=== PATIENT | female | born 1930 | race Caucasian/White ===

== ENCOUNTER 2017-07-05 06:42 | Inpatient (IN) | payer MEDICARE, OTHER ==
[2017-07-05] MEDS ORDERED: Sodium Chloride 0.9% 2.5 ML Syringe FLUSH PRN (07:21)
[2017-07-05] MEDS ORDERED: Bacitracin Oint 1 GM U/D Packet TOP ONE (07:21)
[2017-07-05] MEDS ORDERED: Sodium Chloride 0.9% 10 ML Syringe FLUSH PRN (07:21)
--- NOTE | 2017-07-05 07:28 | EDM.PDOC ---
ED HPI GENERAL MEDICAL PROBLEM - General Chief Complaint: Back Pain or Injury Stated Complaint: FALL Time Seen by Provider: 07/05/17 07:10 - History of Present Illness INITIAL COMMENTS - FREE TEXT/NARRATIVE: HISTORY AND PHYSICAL: History of present illness: The patient is an 87-year-old female who resides at [facility] (formerly [facility]) and presents after having a fall this morning and complaining of lower back and hip pain. According to the family over the last few weeks she has become more unsteady with her gait and is now using a walker but has been having more frequent falls. She had a fall several days ago and has a bruise on her left ribs was not sent for evaluation at that time. This morning she had an unwitnessed fall and landed on her left hip and lower back and complained of pain to this area as well as a skin tear and left elbow pain. Patient is not a very good historian and does complain of left hip pain on my evaluation but denies everything else. Patient is a full code. Patient has a history of dementia generalized anxiety disorder depression hypertension hypothyroidism hearing loss type 2 diabetes. Family says that as far as they know she's been eating well and has had no fevers coughing runny nose. She has not been complaining of any abdominal pain. Family says that they were told that she tripped over a stool in her room and not to she fell although our understanding is that this was unwitnessed. She is not on any anticoagulation per her med list. Patient is moving all extremities spontaneously. When asked about her level of consciousness/visualized drowsiness family says that she has been this way for the last several weeks and that is not a change Review of systems: As per history of present illness and below otherwise all systems reviewed and negative. Past medical history: As per history of present illness and as reviewed below otherwise noncontributory. Surgical history: As per history of present illness and as reviewed below otherwise noncontributory. Social history: No reported history of drug or alcohol abuse. Family history: As per history of present illness and as reviewed below otherwise noncontributory. Physical exam: Gen.: Well-developed well-nourished frail female who is nontoxic and moves all extremities. She lays in bed with her eyes closed and it does follow commands but is very slow to perform them. Her level of consciousness is at her baseline per family. HEENT: Atraumatic, normocephalic, there is no evidence of any defects deformities soft tissue swelling of the scalp there is no tenderness in this area, pupils reactive, negative for conjunctival pallor or scleral icterus, mucous membranes moist, throat clear, neck supple, nontender, trachea midline. There are no midline step-offs tenderness defects of the cervical spine Lungs: Clear to auscultation, breath sounds equal bilaterally, chest nontender. There is an old appearing ecchymosis at the left chest wall near the mid axillary line without any defects or deformities. It is not specifically tender in this area Heart: S1S2, regular rate and rhythm no overt murmurs Abdomen: Soft, nondistended, nontender. Negative for masses or hepatosplenomegaly. Negative for costovertebral tenderness. Pelvis: Stable nontender. There is tenderness at palpation of the lateral left hip without any soft tissue swelling or ecchymosis. The left leg is not shortened or rotated. Genitourinary: Deferred. Rectal: Deferred. Extremities: Atraumatic with the exception of the left although where there is some soft tissue swelling and a skin tear seen but no palpable bony deformities or tenderness and there is no compromise and range of motion at the elbow. There is also tenderness at the left hip as described above. The legs are, negative for cords or calf pain. Neurovascular unremarkable. Neuro: Awake, alert. Motor and sensory unremarkable throughout. Exam nonfocal. Patient does not follow commands very well and is moving all extremities spontaneously and has normal speech. Her level of consciousness is at her baseline per family which on my evaluation is that she lays in bed with her eyes closed and speaks slowly clearly with small short sentences. Back: There are no midline step-offs tenderness defects of the thoracic or lumbar spine no posterior rib or posterior pelvis pain. There is no soft tissue deformities swelling ecchymosis abrasions appreciated Diagnostics: EKG CBC CMP troponin UA CT scan of the head x-ray of the left hip with pelvis left ribs with chest elbow and lumbar spine Lactic acid blood cultures 2 urine culture Therapeutics: IV O2 monitor Tylenol gentle IV fluids Zosyn 1036: All testing results were discussed with the family at bedside as the patient is sleeping. They are aware of the superior and inferior rami fractures as well as the elevated WBCs with left shift. We are currently obtaining a urine sample to see if that is the source of these changes. They are aware that the patient will be admitted to the hospital for further evaluation and care. I discussed the case with Dr. Bee who agrees with Dr. Gutierrez for inpatient admission. They've advised me to give a dose of Zosyn which has been ordered. Impression: Fall with acute left superior and inferior symphysis pubis, leukocytosis with left shift, dehydration Definitive disposition and diagnosis as appropriate pending reevaluation and review of above. Left Hip Pain Score (Numeric/FACES): 7 - Related Data Allergies Allergy/AdvReac Type Severity Reaction Status Date / Time iodine Allergy Vomiting Verified 07/05/17 07:07 Home Meds: Home Meds Acetaminophen [Acetaminophen 8 Hour] 650 mg PO DAILY 07/05/17 [History] Aspirin 81 mg PO DAILY 07/05/17 [History] B1/B2/Niacin/B12/Protease [B-Complex with B-12 Tablet] 1 tab PO DAILY 07/05/17 [ History] Benzonatate 100 mg PO Q8HR PRN 07/05/17 [History] Bisacodyl 10 mg RECTAL DAILY PRN 07/05/17 [History] Escitalopram Oxalate [Lexapro] 15 mg PO DAILY 07/05/17 [History] Gabapentin [Neurontin] 100 mg PO TID 07/05/17 [History] Hydrochlorothiazide 25 mg PO DAILY 07/05/17 [History] Irbesartan 300 mg PO DAILY 07/05/17 [History] LORazepam 1 mg PO DAILY 07/05/17 [History] Latanoprost 1 drop EYERT DAILY 07/05/17 [History] Levothyroxine Sodium [Levo-T] 112 mcg PO DAILY 07/05/17 [History] Magnesium Hydroxide [Milk of Magnesia] 30 ml PO DAILY 07/05/17 [History] Metoprolol Tartrate 25 mg PO BID 07/05/17 [History] OLANZapine [Olanzapine] 5 mg PO BID 07/05/17 [History] Simvastatin [Zocor] 200 mg PO DAILY 07/05/17 [History] busPIRone HCl [Buspirone HCl] 7.5 mg PO BID 07/05/17 [History] metFORMIN [Glucophage] 500 mg PO DAILY 07/05/17 [History] Past Medical History HEENT History: Reports: Glaucoma, Macular Degeneration, Other (See Below) Other HEENT History: bilateral hearing loss Cardiovascular History: Reports: Hypertension, Other (See Below) Other Cardiovascular History: occlusion and stenosis of unspecififed carotid Respiratory History: Reports: None Gastrointestinal History: Reports: None Genitourinary History: Reports: None [employer]OL[employer] History: Reports: None Musculoskeletal History: Reports: None Neurological History: Reports: Alzheimers Disease Psychiatric History: Reports: Anxiety Endocrine/Metabolic History: Reports: Diabetes, Type II, Hypoparathyroidism Hematologic History: Reports: None Immunologic History: Reports: None Oncologic (Cancer) History: Reports: None Dermatologic History: Reports: Other (See Below) Other Dermatologic History: seborrheic keratosis - Past Surgical History Head Surgeries/Procedures: Reports: None HEENT Surgical History: Reports: None Cardiovascular Surgical History: Reports: None Respiratory Surgical History: Reports: None GI Surgical History: Reports: None Female Surgical History: Reports: None Endocrine Surgical History: Reports: None Neurological Surgical History: Reports: None Musculoskeletal Surgical History: Reports: None Oncologic Surgical History: Reports: None Dermatological Surgical History: Reports: None Social & Family History - Family History Family Medical History: Noncontributory - Tobacco Use Smoking Status *Q: Never Smoker - Caffeine Use Caffeine Use: Reports: Coffee - Recreational Drug Use Recreational Drug Use: No ED ROS GENERAL - Review of Systems Review Of Systems: ROS reveals no pertinent complaints other than HPI. ED EXAM, GENERAL - Physical Exam Exam: See Below (See dictation) Course - Vital Signs Last Recorded V/S: Last Vital Signs Temp 36.3 C 07/05/17 07:07 Pulse 58 L 07/05/17 07:07 Resp 18 07/05/17 07:07 BP 169/52 H 07/05/17 07:07 Pulse Ox 94 L 07/05/17 07:07 - Orders/Labs/Meds Orders: Active Orders 24 hr Category Date Time Status Patient Status [ADT] Stat ADT 07/05/17 10:39 Ordered Cardiac Monitoring [RC] . DIRECTED Care 07/05/17 07:19 Active Communication Order [RC] STAT Care 07/05/17 07:21 Active EKG Documentation Completion [RC] STAT Care 07/05/17 07:19 Active Oxygen Therapy, ED [RC] ASDIRECTED Care 07/05/17 07:19 Active Pulse Oximetry [RC] ASDIRECTED Care 07/05/17 07:19 Active Elbow 2V Lt [CR] Stat Exams 07/05/17 07:21 Taken Head wo Cont [CT] Stat Exams 07/05/17 07:20 Taken Hip Min 2V or 3V w Pelvis Lt [CR] Stat Exams 07/05/17 07:20 Taken Lumbar Spine 2 or 3V [CR] Stat Exams 07/05/17 07:20 Taken Ribs 2V w Chest Lt [CR] Stat Exams 07/05/17 07:21 Taken CULTURE BLOOD [BC] Stat Lab 07/05/17 09:26 Results CULTURE BLOOD [BC] Stat Lab 07/05/17 09:41 Results CULTURE URINE [RM] Stat Lab 07/05/17 08:52 Uncollected UA W/MICROSCOPIC [URIN] Stat Lab 07/05/17 07:20 Uncollected Piperacillin/Tazobactam [Piperacil-Tazobact] 3.375 gm Med 07/05/17 10:39 Ordered Sodium Chloride 0.9% [Normal Saline] 50 ml IV ONETIME Sodium Chloride 0.9% [Normal Saline] 1,000 ml Med 07/05/17 09:00 Active IV ASDIRECTED Sodium Chloride 0.9% [Saline Flush] Med 07/05/17 07:21 Active 10 ml FLUSH ASDIRECTED PRN Sodium Chloride 0.9% [Saline Flush] Med 07/05/17 07:21 Active 2.5 ml FLUSH ASDIRECTED PRN Blood Culture x2 Reflex Set [OM.PC] Stat Oth 07/05/17 08:52 Ordered Saline Lock Insert [OM.PC] Stat Oth 07/05/17 07:19 Ordered Medication Orders Sodium Chloride (Normal Saline) 1,000 mls @ 75 mls/hr IV ASDIRECTED BRANDYN Last Admin: 07/05/17 09:33 Dose: 75 mls/hr Piperacillin Sod/Tazobactam (Sod 3.375 gm/ Sodium Chloride) 50 mls @ 100 mls/ hr IV ONETIME ONE Stop: 07/05/17 11:08 Sodium Chloride (Saline Flush) 10 ml FLUSH ASDIRECTED PRN PRN Reason: Keep Vein Open Last Admin: 07/05/17 07:47 Dose: 10 ml Sodium Chloride (Saline Flush) 2.5 ml FLUSH ASDIRECTED PRN PRN Reason: Keep Vein Open Last Admin: 07/05/17 07:49 Dose: 2.5 ml Labs: Laboratory Tests 07/05/17 07/05/17 07/05/17 Range/Units 08:12 08:12 09:26 WBC 19.91 H (4.0-11.0) K/uL RBC 3.69 L (4.30-5.90) M/uL Hgb 12.5 (12.0-16.0) g/dL Hct 37.4 (36.0-46.0) % MCV 101.4 H (80.0-98.0) fL MCH 33.9 H (27.0-32.0) pg MCHC 33.4 (31.0-37.0) g/dL RDW Std Deviation 50.6 (28.0-62.0) fl RDW Coeff of Gideon 14 (11.0-15.0) % Plt Count 194 (150-400) K/uL MPV 12.10 H (7.40-12.00) fL Add Manual Diff YES Neutrophils % (Manual) 73 (48.0-80.0) % Band Neutrophils % 14 % Lymphocytes % (Manual) 8 L (16.0-40.0) % Monocytes % (Manual) 4 (0.0-15.0) % Eosinophils % (Manual) 1 (0.0-7.0) % Nucleated RBC % 0.0 /100WBC Absolute Seg Neuts 14.5 H (1.4-5.7) Band Neutrophils # 2.8 Lymphocytes # (Manual) 1.6 (0.6-2.4) Monocytes # (Manual) 0.8 (0.0-0.8) Eosinophils # (Manual) 0.2 (0.0-0.7) Nucleated RBCs # 0 K/uL Lactate 2.6 H (0.20-2.00) mmol/L Sodium 142 (136-146) mmol/L Potassium 3.8 (3.5-5.1) mmol/L Chloride 107 (98-110) mmol/L Carbon Dioxide 22 (21-31) mmol/L BUN 38 H (6.0-23.0) mg/dL Creatinine 1.4 (0.6-1.5) mg/dL Est Cr Clr Drug Dosing TNP Estimated GFR (MDRD) 35.4 ml/min Glucose 136 H (60-110) mg/dL Calcium 9.6 (8.8-10.8) mg/dL Total Bilirubin 0.8 (0.1-1.5) mg/dL AST 21 (5-40) IU/L ALT 22 (8-54) IU/L Alkaline Phosphatase 57 (40-150) Troponin I < 0.10 (0.0-0.29) NG/ML Total Protein 7.5 (6.0-8.0) g/dL Albumin 3.7 (3.4-4.8) g/dL Globulin 3.8 H (2.0-3.5) g/dL Albumin/Globulin Ratio 1.0 L (1.3-2.8) Meds: Medications Generic Name Dose Route Start Last Admin Trade Name Freq PRN Reason Stop Dose Admin Sodium Chloride 1,000 mls @ 75 mls/hr 07/05/17 09:00 07/05/17 09:33 Normal Saline IV 75 mls/hr ASDIRECTED BRANDYN Administration Piperacillin Sod/Tazobactam 50 mls @ 100 mls/hr 07/05/17 10:39 Sod 3.375 gm/ Sodium Chloride IV 07/05/17 11:08 ONETIME ONE Sodium Chloride 10 ml 07/05/17 07:21 07/05/17 07:47 Saline Flush FLUSH 10 ml ASDIRECTED PRN Administration Keep Vein Open Sodium Chloride 2.5 ml 07/05/17 07:21 07/05/17 07:49 Saline Flush FLUSH 2.5 ml ASDIRECTED PRN Administration Keep Vein Open Discontinued Medications Generic Name Dose Route Start Last Admin Trade Name Freq PRN Reason Stop Dose Admin Acetaminophen 500 mg 07/05/17 07:29 07/05/17 07:46 Tylenol Extra Strength PO 07/05/17 07:30 500 mg ONETIME ONE Administration Bacitracin 1 dose 07/05/17 07:21 07/05/17 07:47 Bacitracin Oint 1 Gm TOP 07/05/17 07:22 1 dose ONETIME ONE Administration Departure - Departure Time of Disposition: 10:42 Disposition: Admitted As Inpatient 64 Condition: Good Clinical Impression: Dehydration Closed fracture of pubic ramus Qualifiers: Encounter type: initial encounter Laterality: left Qualified Code(s): S32.592A - Other specified fracture of left pubis, initial encounter for closed fracture Leukocytosis Qualifiers: Leukocytosis type: bandemia Qualified Code(s): D72.825 - Bandemia Closed fracture of symphysis pubis Qualifiers: Encounter type: initial encounter Laterality: left Qualified Code(s): S32.592A - Other specified fracture of left pubis, initial encounter for closed fracture - Discharge Information Referrals: PCP,None [Primary Care Provider] - Forms: ED Department Discharge - My Orders Last 24 Hours: My Active Orders 07/05/17 07:19 Cardiac Monitoring [RC] . DIRECTED EKG Documentation Completion [RC] STAT Oxygen Therapy, ED [RC] ASDIRECTED Pulse Oximetry [RC] ASDIRECTED Saline Lock Insert [OM.PC] Stat 07/05/17 07:20 Head wo Cont [CT] Stat Hip Min 2V or 3V w Pelvis Lt [CR] Stat Lumbar Spine 2 or 3V [CR] Stat UA W/MICROSCOPIC [URIN] Stat 07/05/17 07:21 Communication Order [RC] STAT Elbow 2V Lt [CR] Stat Ribs 2V w Chest Lt [CR] Stat Sodium Chloride 0.9% [Saline Flush] 10 ml FLUSH ASDIRECTED PRN Sodium Chloride 0.9% [Saline Flush] 2.5 ml FLUSH ASDIRECTED PRN 07/05/17 08:52 CULTURE URINE [RM] Stat Blood Culture x2 Reflex Set [OM.PC] Stat 07/05/17 09:00 Sodium Chloride 0.9% [Normal Saline] 1,000 ml IV ASDIRECTED 07/05/17 09:26 CULTURE BLOOD [BC] Stat 07/05/17 09:41 CULTURE BLOOD [BC] Stat 07/05/17 10:39 Patient Status [ADT] Stat Piperacillin/Tazobactam [Piperacil-Tazobact] 3.375 gm Sodium Chloride 0.9% [ Normal Saline] 50 ml IV ONETIME - Assessment/Plan Last 24 Hours: My Active Orders 07/05/17 07:19 Cardiac Monitoring [RC] . DIRECTED EKG Documentation Completion [RC] STAT Oxygen Therapy, ED [RC] ASDIRECTED Pulse Oximetry [RC] ASDIRECTED Saline Lock Insert [OM.PC] Stat 07/05/17 07:20 Head wo Cont [CT] Stat Hip Min 2V or 3V w Pelvis Lt [CR] Stat Lumbar Spine 2 or 3V [CR] Stat UA W/MICROSCOPIC [URIN] Stat 07/05/17 07:21 Communication Order [RC] STAT Elbow 2V Lt [CR] Stat Ribs 2V w Chest Lt [CR] Stat Sodium Chloride 0.9% [Saline Flush] 10 ml FLUSH ASDIRECTED PRN Sodium Chloride 0.9% [Saline Flush] 2.5 ml FLUSH ASDIRECTED PRN 07/05/17 08:52 CULTURE URINE [RM] Stat Blood Culture x2 Reflex Set [OM.PC] Stat 07/05/17 09:00 Sodium Chloride 0.9% [Normal Saline] 1,000 ml IV ASDIRECTED 07/05/17 09:26 CULTURE BLOOD [BC] Stat 07/05/17 09:41 CULTURE BLOOD [BC] Stat 07/05/17 10:39 Patient Status [ADT] Stat Piperacillin/Tazobactam [Piperacil-Tazobact] 3.375 gm Sodium Chloride 0.9% [ Normal Saline] 50 ml IV ONETIME
[2017-07-05] MEDS ORDERED: Acetaminophen 500 MG Tab PO ONE (07:29)
[2017-07-05 08:41] LABS: CHLORIDE,CL 107 mmol/L (98-110); SODIUM,NA 142 mmol/L (136-146)
[2017-07-05] MEDS ORDERED: Sodium Chloride 0.9% 1,000 ML IV SCH (09:00)
[2017-07-05] MEDS ORDERED: Piperacillin/Tazobactam 3.375 GM in Sodium Chloride 0.9% 50 ML IV ONE (10:39)
[2017-07-05] MEDS ORDERED: Ondansetron 4 MG/2 ML SDV IVPUSH PRN (12:17)
[2017-07-05] MEDS ORDERED: Albuterol 0.083% 2.5 MG/3 ML Neb Soln NEB PRN (12:17)
[2017-07-05] MEDS ORDERED: Bisacodyl 10 MG Supp RECTAL PRN (12:22)
[2017-07-05] MEDS ORDERED: Benzonatate 100 MG Cap PO PRN (12:22)
[2017-07-05] MEDS ORDERED: Enoxaparin 40 MG/0.4 ML Syringe SUBCUT SCH (12:30)
--- NOTE | 2017-07-05 12:33 | PCM.HP ---
H&P History of Present Illness - General Date of Service: 07/05/17 Admit Problem/Dx: Admission Diagnosis/Problem Admission Diagnosis/Problem Fall Source of Information: Family History Limitations: Reports: Other (Patient has dementia and does not respond appropriately to questions the majority of the time) - History of Present Illness Initial Comments - Free Text/Narative: 87-year-old female that is a resident of [facility] that suffered an unwitnessed fall this morning and is brought in secondary to low back and left hip pain. Family of the patient notes that the patient has had increasingly unsteady gait over the past few weeks and currently uses a walker when ambulating. She has also had increased frequency of falls suffering a fall a few weeks ago. She was not brought in for treatment at that time. The family was called this morning stating that the patient had been found on the ground and was complaining of low back and left hip pain. She was subsequently brought into the emergency room for evaluation. Patient does complain of left lower extremity pain and has no other acute concerns at this time. The family notes that the patient is extremely restless and this is atypical for her and they are requesting pain management. Patient has a history of dementia, anxiety, hypertension, hypothyroidism, hypoparathyroidism, diabetes mellitus. ER course: Patient has an elevated white blood cell count of 20,000. She does have a left shift with 14% bands and 78% neutrophils. Lactate is elevated at 2.6. BMP shows an elevated BUN at 38. Initial troponin was negative. Urinalysis is unremarkable. Head CT, left elbow x-ray, lumbar spine x-ray and left sided rib x -ray are all unremarkable. Left hip x-ray shows a non-displaced distracted fracture of the left superior and inferior pubic ramus. No evidence of acute hip fracture. Blood cultures were obtained and are pending. Patient was given a one-time dose of Zosyn and bacitracin was applied to the skin tear of the left elbow. Patient is full code. Left Hip Pain Score (Numeric/FACES): 7 - Related Data Allergies/Adverse Reactions: Allergies Allergy/AdvReac Type Severity Reaction Status Date / Time iodine Allergy Vomiting Verified 07/05/17 07:07 Home Medications: Home Meds Acetaminophen [Acetaminophen 8 Hour] 650 mg PO DAILY 07/05/17 [History] Aspirin 81 mg PO DAILY 07/05/17 [History] B1/B2/Niacin/B12/Protease [B-Complex with B-12 Tablet] 1 tab PO DAILY 07/05/17 [ History] Benzonatate 100 mg PO Q8HR PRN 07/05/17 [History] Bisacodyl 10 mg RECTAL DAILY PRN 07/05/17 [History] Escitalopram Oxalate [Lexapro] 15 mg PO DAILY 07/05/17 [History] Gabapentin [Neurontin] 100 mg PO TID 07/05/17 [History] Hydrochlorothiazide 25 mg PO DAILY 07/05/17 [History] Irbesartan 300 mg PO DAILY 07/05/17 [History] LORazepam 1 mg PO DAILY 07/05/17 [History] Latanoprost 1 drop EYERT DAILY 07/05/17 [History] Levothyroxine Sodium [Levo-T] 112 mcg PO DAILY 07/05/17 [History] Magnesium Hydroxide [Milk of Magnesia] 30 ml PO DAILY 07/05/17 [History] Metoprolol Tartrate 25 mg PO BID 07/05/17 [History] OLANZapine [Olanzapine] 5 mg PO BID 07/05/17 [History] Simvastatin [Zocor] 200 mg PO DAILY 07/05/17 [History] busPIRone HCl [Buspirone HCl] 7.5 mg PO BID 07/05/17 [History] metFORMIN [Glucophage] 500 mg PO DAILY 07/05/17 [History] Past Medical History HEENT History: Reports: Glaucoma, Macular Degeneration, Other (See Below) Other HEENT History: bilateral hearing loss Cardiovascular History: Reports: Hypertension, Other (See Below) Other Cardiovascular History: occlusion and stenosis of unspecififed carotid Respiratory History: Reports: None Gastrointestinal History: Reports: None Genitourinary History: Reports: None FORESTER AIDE History: Reports: None Musculoskeletal History: Reports: None Neurological History: Reports: Alzheimers Disease Psychiatric History: Reports: Anxiety Endocrine/Metabolic History: Reports: Diabetes, Type II, Hypoparathyroidism Hematologic History: Reports: None Immunologic History: Reports: None Oncologic (Cancer) History: Reports: None Dermatologic History: Reports: Other (See Below) Other Dermatologic History: seborrheic keratosis - Past Surgical History Head Surgeries/Procedures: Reports: None HEENT Surgical History: Reports: None Cardiovascular Surgical History: Reports: None Respiratory Surgical History: Reports: None GI Surgical History: Reports: None Female Surgical History: Reports: None Endocrine Surgical History: Reports: None Neurological Surgical History: Reports: None Musculoskeletal Surgical History: Reports: None Oncologic Surgical History: Reports: None Dermatological Surgical History: Reports: None Social & Family History - Family History Family Medical History: Noncontributory - Tobacco Use Smoking Status *Q: Never Smoker - Caffeine Use Caffeine Use: Reports: Coffee - Recreational Drug Use Recreational Drug Use: No H&P Review of Systems - Review of Systems: Review Of Systems: See Below Free Text/Narrative: Patient has dementia and only reports left lower extremity pain. No other acute concerns. General: Reports: No Symptoms HEENT: Reports: No Symptoms Pulmonary: Reports: No Symptoms Cardiovascular: Reports: No Symptoms Gastrointestinal: Reports: No Symptoms Genitourinary: Reports: No Symptoms Musculoskeletal: Reports: Other (Left lower extremity pain) Skin: Reports: No Symptoms Psychiatric: Reports: No Symptoms Neurological: Reports: No Symptoms Hematologic/Lymphatic: Reports: No Symptoms Immunologic: Reports: No Symptoms Exam - Exam Exam: See Below - Vital Signs Vital Signs: Last Vital Signs Temp 98.4 F 07/05/17 11:02 Pulse 61 07/05/17 11:02 Resp 18 07/05/17 11:02 BP 147/55 H 07/05/17 11:02 Pulse Ox 96 07/05/17 11:02 - Exam Quality Assessment: Urinary Catheter, DVT Prophylaxis (SCDs, Lovenox) General: Mild Distress (Patient is restless in the bed complaining of left lower extremity pain.) HEENT: Conjunctiva Clear, Hearing Intact, Nares Patent, Normal Nasal Septum, Other (Patient has an extremely dry appearing oral cavity.), PERRLA Neck: Supple, Trachea Midline, 2 Lungs: Clear to Auscultation, Normal Respiratory Effort Cardiovascular: Regular Rate, Regular Rhythm GI/Abdominal Exam: Normal Bowel Sounds, Soft, Non-Tender, No Organomegaly, No Distention, No Abnormal Bruit, No Mass, Other (Tenderness with palpation of the left side of the pelvis.) Extremities: Other (There is no shortening appreciated of the left lower extremity. External rotation is not evident of the left lower extremity. Patient is able to move her right lower extremity but has pain with movement of her left lower extremity.) Peripheral Pulses: 2+: Radial (L), Radial (R), Posterior Tibial (L), Posterior Tibial (R) Skin: Warm, Dry, Intact Neuro Extensive - Mental Status: Disorientation to Person, Disorientation to Place - Patient Data Result Diagrams: 07/05/17 08:12 07/05/17 08:12 *Q Meaningful Use (ADM) - VTE *Q VTE Criteria *Q: - Stroke *Q Stroke Criteria *Q: - AMI *Q AMI Criteria *Q: - Problem List (1) Closed fracture of pubic ramus SNOMED Code(s): 03552388 ICD Code: S32.599A - OTH FRACTURE OF UNSP PUBIS, INIT ENCNTR FOR CLOSED FRACTURE Status: Acute Current Visit: Yes Qualifiers: Encounter type: initial encounter Laterality: left Qualified Code(s): S32.592A - Other specified fracture of left pubis, initial encounter for closed fracture (2) Closed fracture of symphysis pubis SNOMED Code(s): 249184266 ICD Code: S32.599A - OTH FRACTURE OF UNSP PUBIS, INIT ENCNTR FOR CLOSED FRACTURE Status: Acute Current Visit: Yes Qualifiers: Encounter type: initial encounter Laterality: left Qualified Code(s): S32.592A - Other specified fracture of left pubis, initial encounter for closed fracture (3) Dehydration SNOMED Code(s): 55842378 ICD Code: E86.0 - DEHYDRATION Status: Acute Current Visit: Yes (4) Leukocytosis SNOMED Code(s): 328062610 ICD Code: D72.829 - ELEVATED WHITE BLOOD CELL COUNT, UNSPECIFIED Status: Acute Current Visit: Yes Qualifiers: Leukocytosis type: bandemia Qualified Code(s): D72.825 - Bandemia Problem List Initiated/Reviewed/Updated: Yes Orders Last 24hrs: Active Orders 24 hr Category Date Time Status Antiembolic Devices [RC] PER UNIT ROUTINE Care 07/05/17 12:18 Active Blood Glucose Check, Bedside [RC] TIDMEALS Care 07/05/17 12:17 Active Height and Weight [RC] DAILY Care 07/05/17 12:17 Active Intake and Output [RC] QSHIFT Care 07/05/17 12:17 Active Notify Provider Vital Signs [RC] ASDIRECTED Care 07/05/17 12:18 Active Oxygen Therapy [RC] PRN Care 07/05/17 12:17 Active Pulse Oximetry [RC] PRN Care 07/05/17 12:17 Active RT Aerosol Therapy [RC] ASDIRECTED Care 07/05/17 12:20 Active Up With Assistance [RC] ASDIRECTED Care 07/05/17 12:17 Active VTE/DVT Education [RC] PER UNIT ROUTINE Care 07/05/17 12:17 Active Vital Signs [RC] Q4H Care 07/05/17 12:17 Active PT Evaluation and Treatment [CONS] Routine Cons 07/05/17 12:17 Active [employer] Diet [DIET] Diet 07/05/17 Breakfast Active BASIC METABOLIC PANEL,BMP [CHEM] AM Lab 07/06/17 05:11 Ordered BASIC METABOLIC PANEL,BMP [CHEM] AM Lab 07/07/17 05:11 Ordered BASIC METABOLIC PANEL,BMP [CHEM] AM Lab 07/08/17 05:11 Ordered CBC WITH AUTO DIFF [HEME] AM Lab 07/06/17 05:11 Ordered CBC WITH AUTO DIFF [HEME] AM Lab 07/07/17 05:11 Ordered CBC WITH AUTO DIFF [HEME] AM Lab 07/08/17 05:11 Ordered CBC WITH AUTO DIFF [HEME] Routine Lab 07/05/17 17:00 Ordered LACTIC ACID,WHOLE BLOOD [BG] Q6H Lab 07/05/17 15:30 Ordered LACTIC ACID,WHOLE BLOOD [BG] Q6H Lab 07/05/17 21:30 Ordered Acetaminophen [Tylenol] Med 07/05/17 12:17 Ordered 650 mg PO Q4H PRN Albuterol [Proventil Neb Soln] Med 07/05/17 12:17 Ordered 2.5 mg NEB Q2H PRN Aspirin Med 07/06/17 09:00 Ordered 81 mg PO DAILY B1/B2/Niacin/B12/Protease [B-Complex with B-12 Tablet] Med 07/06/17 09:00 Ordered 1 tab PO DAILY Benzonatate [Tessalon Perles] Med 07/05/17 12:22 Ordered 100 mg PO Q8HR PRN Bisacodyl [Dulcolax] Med 07/05/17 12:22 Ordered 10 mg RECTAL DAILY PRN Enoxaparin [Lovenox] Med 07/05/17 12:30 Ordered 40 mg SUBCUT DAILY Escitalopram Oxalate [Lexapro] Med 07/06/17 09:00 Ordered 15 mg PO DAILY Gabapentin [Neurontin] Med 07/05/17 14:00 Ordered 100 mg PO TID Hydrochlorothiazide Med 07/06/17 09:00 Ordered 25 mg PO DAILY Irbesartan [Irbesartan] Med 07/06/17 09:00 Ordered 300 mg PO DAILY LORazepam [Ativan] Med 07/06/17 09:00 Ordered 1 mg PO DAILY Latanoprost [Latanoprost] Med 07/06/17 09:00 Ordered 1 drop EYERT DAILY Levothyroxine Med 07/06/17 09:00 Ordered 112 mcg PO DAILY Magnesium Hydroxide [Milk of Magnesia] Med 07/06/17 09:00 Ordered 30 ml PO DAILY Metoprolol Tartrate [Lopressor] Med 07/05/17 21:00 Ordered 25 mg PO BID Morphine Med 07/05/17 12:17 Ordered 1 mg IVPUSH Q4H PRN OLANZapine [ZyPREXA] Med 07/05/17 21:00 Ordered 5 mg PO BID Ondansetron [Zofran] Med 07/05/17 12:17 Ordered 4 mg IVPUSH Q4H PRN Simvastatin [Zocor] Med 07/06/17 09:00 Ordered 200 mg PO DAILY Sodium Chloride 0.9% [Normal Saline] 1,000 ml Med 07/05/17 12:30 Ordered IV ASDIRECTED busPIRone HCl [Buspirone HCl] Med 07/05/17 21:00 Ordered 7.5 mg PO BID metFORMIN [Glucophage] Med 07/06/17 09:00 Ordered 500 mg PO DAILY Sequential Compression Device [OM.PC] Per Unit Routine Oth 07/05/17 12:18 Ordered Resuscitation Status Routine Resus Stat 07/05/17 12:17 Ordered Medication Orders Acetaminophen (Tylenol) 650 mg PO Q4H PRN PRN Reason: Pain (Mild 1-3)/fever Albuterol (Proventil Neb Soln) 2.5 mg NEB Q2H PRN PRN Reason: Shortness Of Breath/wheezing Aspirin (Aspirin) 81 mg PO DAILY [facility] Benzonatate (Tessalon Perles) 100 mg PO Q8HR PRN PRN Reason: Cough Bisacodyl (Dulcolax) 10 mg RECTAL DAILY PRN PRN Reason: Constipation Enoxaparin Sodium (Lovenox) 40 mg SUBCUT DAILY [facility] Gabapentin (Neurontin) [address] [facility] Hydrochlorothiazide (Hydrochlorothiazide) [address] [facility] Sodium Chloride (Normal Saline) 1,000 mls @ 75 mls/hr IV ASDIRECTED [facility] Last Admin: 07/05/17 09:33 Dose: 75 mls/hr Sodium Chloride (Normal Saline) 1,000 mls @ 75 mls/hr IV ASDIRECTED [facility] Levothyroxine Sodium (Levothyroxine) [address] [facility] Lorazepam (Ativan) [address] [facility] Magnesium Hydroxide (Milk Of Magnesia) [address] [facility] Metformin HCl (Glucophage) [address] [facility] Metoprolol Tartrate (Lopressor) [address] [facility] Morphine Sulfate (Morphine) 1 mg IVPUSH Q4H PRN PRN Reason: Pain (severe 7-10) Stop: 07/06/17 12:19 Non-Formulary Medication (B1/B2/Niacin/B12/Protease [B-Complex With B-12 Tablet] ) [address] [facility] Non-Formulary Medication (Buspirone Hcl [Buspirone Hcl]) 7.[address] [facility] Non-Formulary Medication (Escitalopram Oxalate [Lexapro]) [address] [facility] Non-Formulary Medication (Irbesartan [Irbesartan]) [address] [facility] Non-Formulary Medication (Latanoprost [Latanoprost]) [address] [facility] Olanzapine (Zyprexa) [address] [facility] Ondansetron HCl (Zofran) 4 mg IVPUSH Q4H PRN PRN Reason: Nausea Simvastatin (Zocor) [address] [facility] Sodium Chloride (Saline Flush) 10 ml FLUSH ASDIRECTED PRN PRN Reason: Keep Vein Open Last Admin: 07/05/17 07:47 Dose: 10 ml Sodium Chloride (Saline Flush) 2.5 ml FLUSH ASDIRECTED PRN PRN Reason: Keep Vein Open Last Admin: 07/05/17 07:49 Dose: 2.5 ml Assessment/Plan Comment:: 87-year-old female with a nondisplaced distracted fracture of the left superior and inferior pubic ramus. #1. Nondisplaced fracture of the left superior and inferior pubic ramus status post unwitnessed fall: -Physical therapy has been consult that. -Explanation given to the family that typically physical therapy and rest are the typical treatment for this type of fracture. No surgical intervention is needed. -IV morphine available for pain relief. -Head CT, left elbow x-ray, lumbar spine x-ray, left-sided rib x-ray are all unremarkable. #2. Leukocytosis of unknown origin, lactic acidosis: -UA is unremarkable. Patient is clear to auscultation in the lungs and no evidence of pneumonia. Patient is afebrile. The leukocytosis and lactic acidosis could be secondary to dehydration. -Patient started on normal saline at 75 mL/hour. -Recheck of lactate at 3:30 PM and CBC at 5 PM. -Can consider initiating antibiotics if leukocytosis worsens. -Blood cultures and urine cultures are pending. All home medications have been restarted. DVT prophylaxis: SCDs, Lovenox Disposition: 2 to 4 days pending improvement and assessment by physical therapy
[2017-07-05] MEDS: Morphine 10 MG/ML Syringe IVPUSH PRN ×3 (12:38→23:46)
[2017-07-05] MEDS: Heparin Sodium 5,000 Units/ML Vial SUBCUT SCH ×2 (13:09→21:00)
[2017-07-05] MEDS: Gabapentin 100 MG Cap PO SCH ×2 (14:39→21:01)
[2017-07-05] MEDS ORDERED: Magnesium Hydroxide 400 MG/5 ML Susp 30 ML Cup PO PRN (14:52)
[2017-07-05] MEDS: Acetaminophen 325 MG Tab PO PRN (14:54)
[2017-07-05] MEDS ORDERED: LORazepam 1 MG Tab PO ONE (15:18)
[2017-07-05] MEDS: Sodium Chloride 0.9% 1,000 ML IV SCH (20:18)
[2017-07-05] MEDS: LORazepam 1 MG Tab PO SCH (20:31)
[2017-07-05] MEDS: busPIRone 5 MG Tab PO SCH (20:40)
[2017-07-05] MEDS: Metoprolol Tartrate 25 MG Tab PO SCH (20:40)
[2017-07-05] MEDS: OLANZapine 5 MG Tab PO SCH (20:41)
[2017-07-05] MEDS: Simvastatin 20 MG Tab PO SCH ×2 (20:46→20:57)
[2017-07-05] MEDS: Latanoprost 0.005% Ophth Soln 2.5 ML Bottle EYERT SCH (20:46)
[2017-07-05] MEDS: metFORMIN 500 MG Tab.ER PO SCH ×2 (20:47→20:56)
[2017-07-06] MEDS: Acetaminophen 325 MG Tab PO PRN (01:54)
[2017-07-06] MEDS: Morphine 10 MG/ML Syringe IVPUSH PRN (03:44)
[2017-07-06] MEDS: LORazepam 2 MG/ML SDV IVPUSH PRN ×2 (03:58→15:54)
[2017-07-06] MEDS: Gabapentin 100 MG Cap PO SCH ×3 (07:43→22:15)
[2017-07-06] MEDS ORDERED: metFORMIN 500 MG Tab PO SCH (08:00)
[2017-07-06] MEDS: Levothyroxine 112 MCG Tab PO SCH (08:00)
[2017-07-06] MEDS: Hydrochlorothiazide 25 MG Tab PO SCH (08:00)
[2017-07-06] MEDS: Escitalopram 10 MG Tab PO SCH (08:01)
[2017-07-06] MEDS: OLANZapine 5 MG Tab PO SCH ×2 (08:01→20:46)
[2017-07-06] MEDS: busPIRone 5 MG Tab PO SCH ×2 (08:01→20:48)
[2017-07-06] MEDS: LORazepam 1 MG Tab PO SCH ×2 (08:02→20:46)
[2017-07-06] MEDS: Heparin Sodium 5,000 Units/ML Vial SUBCUT SCH ×2 (08:03→20:47)
[2017-07-06] MEDS: Metoprolol Tartrate 25 MG Tab PO SCH ×2 (08:04→22:12)
[2017-07-06] MEDS: Irbesartan 150 MG Tab PO SCH (08:06)
[2017-07-06] MEDS: Sodium Chloride 0.9% 1,000 ML IV SCH ×2 (08:17→22:01)
[2017-07-06] MEDS ORDERED: Magnesium Hydroxide 400 MG/5 ML Susp 30 ML Cup PO SCH (09:00)
[2017-07-06] MEDS ORDERED: Aspirin 81 MG Tab.Chew PO SCH (09:00)
[2017-07-06] MEDS ORDERED: Bisacodyl 10 MG Supp RECTAL SCH (09:00)
[2017-07-06] MEDS ORDERED: Morphine 2 MG/ML Syringe IVPUSH PRN (09:20)
[2017-07-06] MEDS: VITAMIN B COMPLEX PO SCH (09:26)
[2017-07-06] MEDS: Magnesium Hydroxide 400 MG/5 ML Susp 30 ML Cup PO SCH (09:27)
[2017-07-06] MEDS: Aspirin 81 MG Tab.Chew PO SCH (09:33)
--- NOTE | 2017-07-06 10:28 | PCM.PN ---
- General Info Date of Service: 07/06/17 Subjective Update: 87F history of dementia admitted for leukocytosis, lactic acidosis believed to be secondary to dehydration. Also found to have closed fractures of pubic symphsis and ramus. As per nursing, she had episode of agitation overnight which responded to IV Ativan. This morning on exam, the patient said "yes" to leg pain, but history gathering was limited secondary to her dementia. Functional Status: Reports: Tolerating Diet - Review of Systems General: Reports: Other (see HPI) - Patient Data Vitals - Most Recent: Last Vital Signs Temp 36.6 C 07/06/17 08:00 Pulse 66 07/06/17 08:04 Resp 16 07/06/17 08:00 BP 174/72 H 07/06/17 08:06 Pulse Ox 94 L 07/06/17 08:00 Weight - Most Recent: 65 kg I&O - Last 24 Hours: Intake & Output 07/05/17 07/06/17 07/06/17 22:59 06:59 14:59 Intake Total 1120 50 Balance 1120 50 Lab Results Last 24 Hours: Laboratory Results - last 24 hr 07/05/17 07/05/17 07/05/17 Range/Units 15:29 15:29 16:43 WBC 15.75 H (4.0-11.0) K/uL RBC 3.77 L (4.30-5.90) M/uL Hgb 12.7 (12.0-16.0) g/dL Hct 37.9 (36.0-46.0) % MCV 100.5 H (80.0-98.0) fL MCH 33.7 H (27.0-32.0) pg MCHC 33.5 (31.0-37.0) g/dL RDW Std Deviation 49.9 (28.0-62.0) fl RDW Coeff of Gideon 14 (11.0-15.0) % Plt Count 175 (150-400) K/uL MPV 12.20 H (7.40-12.00) fL Add Manual Diff YES Neutrophils % (Manual) 79 (48.0-80.0) % Band Neutrophils % 4 % Lymphocytes % (Manual) 13 L (16.0-40.0) % Monocytes % (Manual) 3 (0.0-15.0) % Eosinophils % (Manual) (0.0-7.0) % Basophils % (Manual) (0.0-1.5) % Metamyelocytes % 1 % Nucleated RBC % 0.0 /100WBC Absolute Seg Neuts 12.4 H (1.4-5.7) Band Neutrophils # 0.6 Lymphocytes # (Manual) 2.0 (0.6-2.4) Monocytes # (Manual) 0.5 (0.0-0.8) Eosinophils # (Manual) (0.0-0.7) Basophils # (Manual) (0.0-0.1) Absolute Metamyelocyte 0.2 Nucleated RBCs # 0 K/uL Lactate 2.2 H (0.20-2.00) mmol/L Sodium (136-146) mmol/L Potassium (3.5-5.1) mmol/L Chloride (98-110) mmol/L Carbon Dioxide (21-31) mmol/L BUN (6.0-23.0) mg/dL Creatinine (0.6-1.5) mg/dL Est Cr Clr Drug Dosing mL/min Estimated GFR (MDRD) ml/min Glucose (60-110) mg/dL POC Glucose 141 H (60-110) mg/dL Calcium (8.8-10.8) mg/dL 07/06/17 07/06/17 07/06/17 Range/Units 04:45 04:45 04:45 WBC 13.15 H (4.0-11.0) K/uL RBC 3.16 L (4.30-5.90) M/uL Hgb 10.7 L (12.0-16.0) g/dL Hct 31.6 L (36.0-46.0) % MCV 100.0 H (80.0-98.0) fL MCH 33.9 H (27.0-32.0) pg MCHC 33.9 (31.0-37.0) g/dL RDW Std Deviation 49.8 (28.0-62.0) fl RDW Coeff of Gideon 14 (11.0-15.0) % Plt Count 186 (150-400) K/uL MPV 12.40 H (7.40-12.00) fL Add Manual Diff YES Neutrophils % (Manual) 71 (48.0-80.0) % Band Neutrophils % 9 % Lymphocytes % (Manual) 12 L (16.0-40.0) % Monocytes % (Manual) 5 (0.0-15.0) % Eosinophils % (Manual) 1 (0.0-7.0) % Basophils % (Manual) 2 H (0.0-1.5) % Metamyelocytes % % Nucleated RBC % 0.0 /100WBC Absolute Seg Neuts 9.3 H (1.4-5.7) Band Neutrophils # 1.2 Lymphocytes # (Manual) 1.6 (0.6-2.4) Monocytes # (Manual) 0.7 (0.0-0.8) Eosinophils # (Manual) 0.1 (0.0-0.7) Basophils # (Manual) 0.3 H (0.0-0.1) Absolute Metamyelocyte Nucleated RBCs # 0 K/uL Lactate 1.2 (0.20-2.00) mmol/L Sodium 141 (136-146) mmol/L Potassium 4.1 (3.5-5.1) mmol/L Chloride 112 H (98-110) mmol/L Carbon Dioxide 20 L (21-31) mmol/L BUN 28 H (6.0-23.0) mg/dL Creatinine 1.4 (0.6-1.5) mg/dL Est Cr Clr Drug Dosing 25.50 mL/min Estimated GFR (MDRD) 35.4 ml/min Glucose 141 H (60-110) mg/dL POC Glucose (60-110) mg/dL Calcium 8.5 L (8.8-10.8) mg/dL 07/06/17 Range/Units 07:11 WBC (4.0-11.0) K/uL RBC (4.30-5.90) M/uL Hgb (12.0-16.0) g/dL Hct (36.0-46.0) % MCV (80.0-98.0) fL MCH (27.0-32.0) pg MCHC (31.0-37.0) g/dL RDW Std Deviation (28.0-62.0) fl RDW Coeff of Gideon (11.0-15.0) % Plt Count (150-400) K/uL MPV (7.40-12.00) fL Add Manual Diff Neutrophils % (Manual) (48.0-80.0) % Band Neutrophils % % Lymphocytes % (Manual) (16.0-40.0) % Monocytes % (Manual) (0.0-15.0) % Eosinophils % (Manual) (0.0-7.0) % Basophils % (Manual) (0.0-1.5) % Metamyelocytes % % Nucleated RBC % /100WBC Absolute Seg Neuts (1.4-5.7) Band Neutrophils # Lymphocytes # (Manual) (0.6-2.4) Monocytes # (Manual) (0.0-0.8) Eosinophils # (Manual) (0.0-0.7) Basophils # (Manual) (0.0-0.1) Absolute Metamyelocyte Nucleated RBCs # K/uL Lactate (0.20-2.00) mmol/L Sodium (136-146) mmol/L Potassium (3.5-5.1) mmol/L Chloride (98-110) mmol/L Carbon Dioxide (21-31) mmol/L BUN (6.0-23.0) mg/dL Creatinine (0.6-1.5) mg/dL Est Cr Clr Drug Dosing mL/min Estimated GFR (MDRD) ml/min Glucose (60-110) mg/dL POC Glucose 113 H (60-110) mg/dL Calcium (8.8-10.8) mg/dL Med Orders - Current: Current Medications Acetaminophen (Tylenol) 650 mg PO Q4H PRN PRN Reason: Pain (Mild 1-3)/fever Last Admin: 07/06/17 01:54 Dose: 650 mg Albuterol (Proventil Neb Soln) 2.5 mg NEB Q2H PRN PRN Reason: Shortness Of Breath/wheezing Aspirin (Aspirin) 81 mg PO MOWEFR [facility] Last Admin: 07/06/17 09:33 Dose: 81 mg Benzonatate (Tessalon Perles) 100 mg PO Q8HR PRN PRN Reason: Cough Bisacodyl (Dulcolax) 10 mg RECTAL DAILY [facility] Last Admin: 07/06/17 08:00 Dose: 10 mg Buspirone HCl (Buspar) 7.5 mg PO BID [facility] Last Admin: 07/06/17 08:01 Dose: 7.5 mg Escitalopram Oxalate (Lexapro) 15 mg PO DAILY [facility] Last Admin: 07/06/17 08:01 Dose: 15 mg Gabapentin (Neurontin) 100 mg PO TID [facility] Last Admin: 07/06/17 07:43 Dose: Not Given Heparin Sodium (Porcine) (Heparin Sodium) 5,000 units SUBCUT Q12HR [facility] Last Admin: 07/06/17 08:03 Dose: 5,000 units Hydrochlorothiazide (Hydrochlorothiazide) 25 mg PO DAILY [facility] Last Admin: 07/06/17 08:00 Dose: 25 mg Sodium Chloride (Normal Saline) 1,000 mls @ 75 mls/hr IV ASDIRECTED [facility] Last Admin: 07/06/17 08:17 Dose: 75 mls/hr Irbesartan (Avapro) 300 mg PO DAILY [facility] Last Admin: 07/06/17 08:06 Dose: 300 mg Latanoprost (Xalatan 0.005% Ophth Soln) 1 ml EYERT BEDTIME [facility] Last Admin: 07/05/17 20:46 Dose: 1 drop Levothyroxine Sodium (Levothyroxine) 112 mcg PO ACBREAKFAST [facility] Last Admin: 07/06/17 08:00 Dose: 112 mcg Lorazepam (Ativan) 1 mg PO BID [facility] Last Admin: 07/06/17 08:02 Dose: 1 mg Lorazepam (Ativan) 1 mg IVPUSH Q4H PRN PRN Reason: Agitation Last Admin: 07/06/17 03:58 Dose: 1 mg Magnesium Hydroxide (Milk Of Magnesia) 30 ml PO DAILY [facility] Last Admin: 07/06/17 09:27 Dose: Not Given Metformin HCl (Glucophage Xr) 500 mg PO BEDTIME [facility] Last Admin: 07/05/17 20:56 Dose: Not Given Metoprolol Tartrate (Lopressor) 25 mg PO BID [facility] Last Admin: 07/06/17 08:04 Dose: 25 mg Morphine Sulfate (Morphine) 1 mg IVPUSH Q4H PRN PRN Reason: Pain (severe 7-10) Stop: 07/06/17 12:19 Last Admin: 07/06/17 09:36 Dose: 1 mg Olanzapine (Zyprexa) 5 mg PO BID [facility] Last Admin: 07/06/17 08:01 Dose: 5 mg Ondansetron HCl (Zofran) 4 mg IVPUSH Q4H PRN PRN Reason: Nausea Vitamin B Complex 1 each PO DAILY [facility] Last Admin: 07/06/17 09:26 Dose: Not Given Simvastatin (Zocor) 20 mg PO BEDTIME [facility] Last Admin: 07/05/17 20:57 Dose: Not Given Sodium Chloride (Saline Flush) 10 ml FLUSH ASDIRECTED PRN PRN Reason: Keep Vein Open Last Admin: 07/05/17 07:47 Dose: 10 ml Sodium Chloride (Saline Flush) 2.5 ml FLUSH ASDIRECTED PRN PRN Reason: Keep Vein Open Last Admin: 07/05/17 07:49 Dose: 2.5 ml Discontinued Medications Acetaminophen (Tylenol Extra Strength) 500 mg PO ONETIME ONE Stop: 07/05/17 07:30 Last Admin: 07/05/17 07:46 Dose: 500 mg Aspirin (Aspirin) 81 mg PO DAILY [facility] Bacitracin (Bacitracin Oint 1 Gm) 1 dose TOP ONETIME ONE Stop: 07/05/17 07:22 Last Admin: 07/05/17 07:47 Dose: 1 dose Bisacodyl (Dulcolax) 10 mg RECTAL DAILY PRN PRN Reason: Constipation Sodium Chloride (Normal Saline) 1,000 mls @ 75 mls/hr IV ASDIRECTED [facility] Last Infusion: 07/05/17 20:17 Dose: 75 mls/hr Piperacillin Sod/Tazobactam (Sod 3.375 gm/ Sodium Chloride) 50 mls @ 100 mls/ hr IV ONETIME ONE Stop: 07/05/17 11:08 Last Admin: 07/05/17 10:56 Dose: 100 mls/hr Lorazepam (Ativan) 1 mg PO BEDTIME [facility] Lorazepam (Ativan) 1 mg PO ONETIME ONE Stop: 07/05/17 15:19 Last Admin: 07/05/17 15:30 Dose: 1 mg Magnesium Hydroxide (Milk Of Magnesia) 30 ml PO DAILY [facility] Magnesium Hydroxide (Milk Of Magnesia) 30 ml PO DAILY PRN PRN Reason: Constipation Metformin HCl (Glucophage) 500 mg PO DAILY@0800 [facility] Morphine Sulfate (Morphine) 1 mg IVPUSH Q4H PRN PRN Reason: Pain (severe 7-10) Stop: 07/06/17 12:19 Last Admin: 07/06/17 03:44 Dose: 1 mg - Exam General: Alert Neck: Supple Lungs: Clear to Auscultation, Normal Respiratory Effort Cardiovascular: Regular Rate, Regular Rhythm GI/Abdominal Exam: Normal Bowel Sounds, Soft Extremities: No Pedal Edema, Normal Capillary Refill, Other (no shortening/ external rotation. ) Peripheral Pulses: 2+: Dorsalis Pedis (L), Dorsalis Pedis (R) Skin: Warm, Intact - Problem List Review Problem List Initiated/Reviewed/Updated: Yes - Plan Plan:: A: #1. Nondisplaced closed fractures of pubic symphsis and pubic ramus #2. Leukocdytosis - improving #3. Lactic acidosis - resolved #4. Hip pain secondary to #1 P: #1. Hold antibiotics given response to IV fluids. Lactic acidosis given no source is likely secondary to dehydration and it has improved. #2. PT to evaluate and treat. Will follow up on recommendations. #3. Anticipate return back to [place] in 1-2 days.
--- NOTE | 2017-07-06 14:22 | CT ---
EXAM DATE: 07/05/17 PATIENT'S AGE: 87 Patient: FIONA [place] Facility: [place], [place] Site . Site : 1930 Study: CT Head [id number]/12/2017 8:45:17 AM Ordering Physician: Cherise Ramsey Final Report: INDICATION: TRIPPED AND FELL AT [facility] CT SCAN HEAD WITHOUT CONTRAST TECHNIQUE: Direct axial non-contrast images of the head from foramen magnum to vertex are provided. FINDINGS: Axial images of the brain demonstrate a normal for age appearance of the ventricles, sulci and basal cistern. There is some mild diffuse atrophy. There is some patchy periventricular low attenuation suggesting small vessel ischemic changes. There is no evidence of intracranial hemorrhage, infarct, mass or mass effect. Singh-white differentiation is normal throughout. Visualized mastoid air cells and middle ear cavities are clear. The visualized paranasal sinuses are clear. The orbits are symmetric. Calvarium intact. CONCLUSION: No acute findings on unenhanced head CT. Dictated by: Chaka Mcelroy MD @ 07/05/2017 08:49:19 (Electronic Signature) Report Signed by Proxy. PRINCESS
--- NOTE | 2017-07-06 14:23 | CR ---
EXAM DATE: 07/05/17 PATIENT'S AGE: 87 Patient: FIONA [place] Facility: [place], [place] Site . Site : 1930 Study: XRay Extremity Left elbow [id number]/12/2017 9:37:13 AM Ordering Physician: Cherise Ramsey Final Report: Indication: Trauma. Comparison: None available. Technique: Two views of the left elbow. Findings: Suboptimal position of the elbow on the cross-table lateral view which limits evaluation. No obvious effusion. No definite fracture. No radiopaque foreign body. Bone mineralization is normal. Impression: No definite fracture or effusion. Dictated by Yefri Duran MD @ Jul 05 2017 9:41AM (Electronic Signature) Report Signed by Proxy. PRINCESS
--- NOTE | 2017-07-06 14:24 | CR ---
EXAM DATE: 07/05/17 PATIENT'S AGE: 87 Patient: FIONA [place] Facility: [place], [place] Site . Site : 1930 Study: XRay Spine Lumbar [id number]/12/2017 9:39:02 AM Ordering Physician: Cherise Ramsey Final Report: Indication: Trauma. Comparison: None available. Technique: Two views of the lumbar spine. Findings: There are 5 [id number] lumbar type vertebral bodies. Severe vascular calcifications are seen throughout. The vertebral body heights are well maintained. There may be minimal anterolisthesis of L3 on L4 and L4-5, as well as of L5 on S1, however this may be due to the suboptimal positioning as well. There is multilevel degenerative change involving the discs bilaterally, most severe in the lower lumbar spine. Mild SI joint disease. Impression: Vertebral body heights are well maintained, and there is minimal multilevel anterolisthesis of lower lumbar spine predominately due to disc degenerative change. Dictated by Yefri Duran MD @ Jul 05 2017 9:43AM (Electronic Signature) Report Signed by Proxy. PRINCESS
--- NOTE | 2017-07-06 14:25 | CR ---
EXAM DATE: 07/05/17 PATIENT'S AGE: 87 Patient: [place]IONA [place] Facility: [place], [place] Site . Site : 1930 Study: XRay Hip Left [id number]/12/2017 9:42:01 AM Ordering Physician: Cherise Ramsey Final Report: Indication: Trauma. Fall. Pain. Technique: AP pelvis and 2 views of the left hip. Findings: Acute complete nondisplaced fracture superior medial margin of the left superior pubic ramus at its junction with the acetabulum. Subtle nondisplaced fracture of the inferior left symphysis pubis. There is no evidence for fracture or dislocation of the left hip. There is skeletal demineralization. Degenerative change of the lower lumbar spine. Impression: 1. Acute complete non distracted fracture of the left superior pubic ramus at its junction with the acetabulum. 2. Subtle nondisplaced fracture of the inferior left symphysis pubis. 3. Skeletal demineralization. 4. No fracture or dislocation of the left hip. Dictated by Josue Hernandez MD @ Jul 05 2017 9:43AM (Electronic Signature) Report Signed by Proxy. PRINCESS
--- NOTE | 2017-07-06 14:27 | CR ---
EXAM DATE: 07/05/17 PATIENT'S AGE: 87 Patient: [facility]A [place] Facility: [place], [place] Site . Site : 1930 Study: XRay Chest Left ribs [id number]/12/2017 9:42:44 AM Ordering Physician: Cherise Ramsey Final Report: Indication: Trauma. Pain. Technique: AP pelvis and 2 views of the left-sided ribs. Findings: Skeletal demineralization. The lungs are grossly clear. Overall heart size is at the upper limit of normal accentuated by the AP technique. Skeletal demineralization. No acute displaced left-sided rib fractures are identified. Subtle nondisplaced rib fractures can be overlooked on plain radiography. Impression: 1. No acute displaced left-sided rib fractures. 2. No acute cardiopulmonary process identified. Dictated by Josue Hernandez MD @ Jul 05 2017 9:46AM (Electronic Signature) Report Signed by Proxy. PRINCESS
[2017-07-06] MEDS: traMADol 50 MG Tab PO PRN (15:38)
[2017-07-06] MEDS ORDERED: Bisacodyl 10 MG Supp RECTAL PRN (19:56)
[2017-07-06] MEDS: Simvastatin 20 MG Tab PO SCH (20:46)
[2017-07-06] MEDS: metFORMIN 500 MG Tab.ER PO SCH (20:49)
[2017-07-06] MEDS ORDERED: LORazepam 1 MG Tab PO SCH (21:00)
[2017-07-06] MEDS: Latanoprost 0.005% Ophth Soln 2.5 ML Bottle EYERT SCH (22:12)
[2017-07-06] MEDS: Morphine 2 MG/ML Syringe IVPUSH PRN (22:13)
[2017-07-07] MEDS: LORazepam 2 MG/ML SDV IVPUSH PRN ×2 (02:56→14:28)
[2017-07-07] MEDS: Gabapentin 100 MG Cap PO SCH ×3 (06:24→21:39)
[2017-07-07] MEDS: Levothyroxine 112 MCG Tab PO SCH (06:31)
[2017-07-07] MEDS: Heparin Sodium 5,000 Units/ML Vial SUBCUT SCH ×2 (09:31→21:32)
[2017-07-07] MEDS: LORazepam 1 MG Tab PO SCH ×2 (09:31→21:31)
[2017-07-07] MEDS: Magnesium Hydroxide 400 MG/5 ML Susp 30 ML Cup PO SCH (09:31)
[2017-07-07] MEDS: Escitalopram 10 MG Tab PO SCH (09:32)
[2017-07-07] MEDS: busPIRone 5 MG Tab PO SCH ×2 (09:32→21:31)
[2017-07-07] MEDS: OLANZapine 5 MG Tab PO SCH ×2 (09:33→21:32)
[2017-07-07] MEDS: Irbesartan 150 MG Tab PO SCH (09:33)
[2017-07-07] MEDS: Hydrochlorothiazide 25 MG Tab PO SCH (09:33)
[2017-07-07] MEDS: VITAMIN B COMPLEX PO SCH (09:35)
[2017-07-07] MEDS: Metoprolol Tartrate 25 MG Tab PO SCH ×2 (09:36→21:30)
[2017-07-07] MEDS: traMADol 50 MG Tab PO PRN (10:33)
[2017-07-07] MEDS: Sodium Chloride 0.9% 1,000 ML IV SCH (11:33)
[2017-07-07] MEDS: Doxycycline 100 MG Cap PO SCH ×2 (11:46→21:31)
--- NOTE | 2017-07-07 16:02 | PCM.PN ---
- General Info Date of Service: 07/07/17 Subjective Update: Assessment nursing staff and the patient's son, this patient had episodes of crying and agitation overnight. This resolved with when necessary Ativan. Talking to the patient's morning, she tells me that her pain is well- controlled. She does however feel very drowsy secondary to the morphine that she has been getting. She is also started on tramadol yesterday in attempts to decrease the drowsiness. Otherwise, she denies any pain, chest pain, fevers, chills. Her white count still is elevated. Urine culture came back negative. - Review of Systems General: Reports: Other (See history of present illness) - Patient Data Vitals - Most Recent: Last Vital Signs Temp 36.8 C 07/07/17 08:00 Pulse 68 07/07/17 09:36 Resp 20 07/07/17 08:00 BP 163/65 H 07/07/17 09:36 Pulse Ox 96 07/07/17 08:00 Weight - Most Recent: 65 kg I&O - Last 24 Hours: Intake & Output 07/07/17 07/07/17 07/07/17 06:59 14:59 22:59 Intake Total 100 Balance 100 Lab Results Last 24 Hours: Laboratory Results - last 24 hr 07/06/17 07/06/17 07/07/17 Range/Units 11:54 16:11 05:29 WBC 13.38 H (4.0-11.0) K/uL RBC 3.28 L (4.30-5.90) M/uL Hgb 11.0 L (12.0-16.0) g/dL Hct 33.4 L (36.0-46.0) % MCV 101.8 H (80.0-98.0) fL MCH 33.5 H (27.0-32.0) pg MCHC 32.9 (31.0-37.0) g/dL RDW Std Deviation 51.4 (28.0-62.0) fl RDW Coeff of Gideon 14 (11.0-15.0) % Plt Count 162 (150-400) K/uL MPV 12.10 H (7.40-12.00) fL Add Manual Diff YES Neutrophils % (Manual) 74 (48.0-80.0) % Band Neutrophils % 10 % Lymphocytes % (Manual) 13 L (16.0-40.0) % Monocytes % (Manual) 3 (0.0-15.0) % Nucleated RBC % 0.0 /100WBC Absolute Seg Neuts 9.9 H (1.4-5.7) Band Neutrophils # 1.3 Lymphocytes # (Manual) 1.7 (0.6-2.4) Monocytes # (Manual) 0.4 (0.0-0.8) Nucleated RBCs # 0 K/uL Sodium (136-146) mmol/L Potassium (3.5-5.1) mmol/L Chloride (98-110) mmol/L Carbon Dioxide (21-31) mmol/L BUN (6.0-23.0) mg/dL Creatinine (0.6-1.5) mg/dL Est Cr Clr Drug Dosing mL/min Estimated GFR (MDRD) ml/min Glucose (60-110) mg/dL POC Glucose 134 H 149 H (60-110) mg/dL Calcium (8.8-10.8) mg/dL 07/07/17 07/07/17 07/07/17 Range/Units 05:29 06:20 08:53 WBC (4.0-11.0) K/uL RBC (4.30-5.90) M/uL Hgb (12.0-16.0) g/dL Hct (36.0-46.0) % MCV (80.0-98.0) fL MCH (27.0-32.0) pg MCHC (31.0-37.0) g/dL RDW Std Deviation (28.0-62.0) fl RDW Coeff of Gideon (11.0-15.0) % Plt Count (150-400) K/uL MPV (7.40-12.00) fL Add Manual Diff Neutrophils % (Manual) (48.0-80.0) % Band Neutrophils % % Lymphocytes % (Manual) (16.0-40.0) % Monocytes % (Manual) (0.0-15.0) % Nucleated RBC % /100WBC Absolute Seg Neuts (1.4-5.7) Band Neutrophils # Lymphocytes # (Manual) (0.6-2.4) Monocytes # (Manual) (0.0-0.8) Nucleated RBCs # K/uL Sodium 142 (136-146) mmol/L Potassium 3.5 (3.5-5.1) mmol/L Chloride 111 H (98-110) mmol/L Carbon Dioxide 21 (21-31) mmol/L BUN 19 (6.0-23.0) mg/dL Creatinine 1.0 (0.6-1.5) mg/dL Est Cr Clr Drug Dosing 35.70 mL/min Estimated GFR (MDRD) 52.2 ml/min Glucose 108 (60-110) mg/dL POC Glucose 131 H 126 H (60-110) mg/dL Calcium 8.1 L (8.8-10.8) mg/dL Med Orders - Current: Current Medications Acetaminophen (Tylenol) 650 mg PO Q4H PRN PRN Reason: Pain (Mild 1-3)/fever Last Admin: 07/06/17 01:54 Dose: 650 mg Albuterol (Proventil Neb Soln) 2.5 mg NEB Q2H PRN PRN Reason: Shortness Of Breath/wheezing Aspirin (Aspirin) 81 mg PO MOWEFR [facility] Last Admin: 07/06/17 09:33 Dose: 81 mg Benzonatate (Tessalon Perles) 100 mg PO Q8HR PRN PRN Reason: Cough Bisacodyl (Dulcolax) 10 mg RECTAL DAILY PRN PRN Reason: Constipation Buspirone HCl (Buspar) 7.5 mg PO BID [facility] Last Admin: 07/07/17 09:32 Dose: 7.5 mg Doxycycline Hyclate (Vibramycin) 100 mg PO Q12HR [facility] Last Admin: 07/07/17 11:46 Dose: 100 mg Escitalopram Oxalate (Lexapro) 15 mg PO DAILY [facility] Last Admin: 07/07/17 09:32 Dose: 15 mg Gabapentin (Neurontin) 100 mg PO TID [facility] Last Admin: 07/07/17 13:46 Dose: 100 mg Heparin Sodium (Porcine) (Heparin Sodium) 5,000 units SUBCUT Q12HR [facility] Last Admin: 07/07/17 09:31 Dose: 5,000 units Hydrochlorothiazide (Hydrochlorothiazide) 25 mg PO DAILY [facility] Last Admin: 07/07/17 09:33 Dose: 25 mg Sodium Chloride (Normal Saline) 1,000 mls @ 75 mls/hr IV ASDIRECTED [facility] Last Admin: 07/07/17 11:33 Dose: 75 mls/hr Irbesartan (Avapro) 300 mg PO DAILY [facility] Last Admin: 07/07/17 09:33 Dose: 300 mg Latanoprost (Xalatan 0.005% Ophth Soln) 1 ml EYERT BEDTIME [facility] Last Admin: 07/06/17 22:12 Dose: 1 drop Levothyroxine Sodium (Levothyroxine) 112 mcg PO ACBREAKFAST [facility] Last Admin: 07/07/17 06:31 Dose: 112 mcg Lorazepam (Ativan) 1 mg PO BID [facility] Last Admin: 07/07/17 09:31 Dose: Not Given Lorazepam (Ativan) 1 mg IVPUSH Q4H PRN PRN Reason: Agitation Last Admin: 07/07/17 14:28 Dose: 1 mg Magnesium Hydroxide (Milk Of Magnesia) 30 ml PO DAILY [facility] Last Admin: 07/07/17 09:31 Dose: 30 ml Metformin HCl (Glucophage Xr) 500 mg PO BEDTIME [facility] Last Admin: 07/06/17 20:49 Dose: 500 mg Metoprolol Tartrate (Lopressor) 25 mg PO BID [facility] Last Admin: 07/07/17 09:36 Dose: 25 mg Morphine Sulfate (Morphine) 1 mg IVPUSH Q4H PRN PRN Reason: Pain Last Admin: 07/06/17 22:13 Dose: 1 mg Olanzapine (Zyprexa) 5 mg PO BID [facility] Last Admin: 07/07/17 09:33 Dose: 5 mg Ondansetron HCl (Zofran) 4 mg IVPUSH Q4H PRN PRN Reason: Nausea Vitamin B Complex 1 each PO DAILY [facility] Last Admin: 07/07/17 09:35 Dose: Not Given Simvastatin (Zocor) 20 mg PO BEDTIME [facility] Last Admin: 07/06/17 20:46 Dose: 20 mg Sodium Chloride (Saline Flush) 10 ml FLUSH ASDIRECTED PRN PRN Reason: Keep Vein Open Last Admin: 07/05/17 07:47 Dose: 10 ml Sodium Chloride (Saline Flush) 2.5 ml FLUSH ASDIRECTED PRN PRN Reason: Keep Vein Open Last Admin: 07/05/17 07:49 Dose: 2.5 ml Tramadol HCl (Ultram) 50 mg PO Q12H PRN PRN Reason: Pain Last Admin: 07/07/17 10:33 Dose: 50 mg Discontinued Medications Acetaminophen (Tylenol Extra Strength) 500 mg PO ONETIME ONE Stop: 07/05/17 07:30 Last Admin: 07/05/17 07:46 Dose: 500 mg Aspirin (Aspirin) 81 mg PO DAILY [facility] Bacitracin (Bacitracin Oint 1 Gm) 1 dose TOP ONETIME ONE Stop: 07/05/17 07:22 Last Admin: 07/05/17 07:47 Dose: 1 dose Bisacodyl (Dulcolax) 10 mg RECTAL DAILY PRN PRN Reason: Constipation Bisacodyl (Dulcolax) 10 mg RECTAL DAILY [facility] Last Admin: 07/06/17 08:00 Dose: 10 mg Sodium Chloride (Normal Saline) 1,000 mls @ 75 mls/hr IV ASDIRECTED [facility] Last Infusion: 07/05/17 20:17 Dose: 75 mls/hr Piperacillin Sod/Tazobactam (Sod 3.375 gm/ Sodium Chloride) 50 mls @ 100 mls/ hr IV ONETIME ONE Stop: 07/05/17 11:08 Last Admin: 07/05/17 10:56 Dose: 100 mls/hr Lorazepam (Ativan) 1 mg PO BEDTIME [facility] Lorazepam (Ativan) 1 mg PO ONETIME ONE Stop: 07/05/17 15:19 Last Admin: 07/05/17 15:30 Dose: 1 mg Magnesium Hydroxide (Milk Of Magnesia) 30 ml PO DAILY [facility] Magnesium Hydroxide (Milk Of Magnesia) 30 ml PO DAILY PRN PRN Reason: Constipation Metformin HCl (Glucophage) 500 mg PO DAILY@0800 [facility] Morphine Sulfate (Morphine) 1 mg IVPUSH Q4H PRN PRN Reason: Pain (severe 7-10) Stop: 07/06/17 12:19 Last Admin: 07/06/17 03:44 Dose: 1 mg Morphine Sulfate (Morphine) 1 mg IVPUSH Q4H PRN PRN Reason: Pain (severe 7-10) Stop: 07/06/17 12:19 Last Admin: 07/06/17 09:36 Dose: 1 mg - Exam General: Alert, Oriented Neck: Supple Lungs: Clear to Auscultation, Normal Respiratory Effort Cardiovascular: Regular Rate, Regular Rhythm GI/Abdominal Exam: Normal Bowel Sounds, Soft Extremities: Normal Inspection, No Pedal Edema, Normal Capillary Refill Peripheral Pulses: 2+: Dorsalis Pedis (L), Dorsalis Pedis (R) Skin: Warm, Intact - Problem List Review Problem List Initiated/Reviewed/Updated: Yes - My Orders Last 24 Hours: My Active Orders 07/06/17 15:25 Morphine 1 mg IVPUSH Q4H PRN 07/06/17 15:28 traMADol [Ultram] 50 mg PO Q12H PRN 07/07/17 11:04 Ready for Discharge [RC] PER UNIT ROUTINE 07/07/17 11:45 Doxycycline [Vibramycin] 100 mg PO Q12HR - Plan Plan:: A: #1. Nondisplaced closed fractures of pubic symphsis and pubic ramus #2. Leukocoytosis #3. Lactic acidosis - resolved #4. Hip pain secondary to #1 #5. Agitation secondary to pain P: #1. By mouth doxycycline 100 mg every 12 hours started for possible pulmonary etiology of infection. Leukocytosis is still present with a white count of 13, 000. We'll get a recheck tomorrow morning. She can continue on the doxycycline as an outpatient. Her urine culture is negative. #2. Anticipate discharge tomorrow back to [facility] #3. PT to evaluate and treat. Will follow up on recommendations.
[2017-07-07] MEDS: Acetaminophen 325 MG Tab PO PRN (16:28)
[2017-07-07] MEDS: Simvastatin 20 MG Tab PO SCH (21:31)
[2017-07-07] MEDS: metFORMIN 500 MG Tab.ER PO SCH (21:32)
[2017-07-07] MEDS: Latanoprost 0.005% Ophth Soln 2.5 ML Bottle EYERT SCH (21:33)
[2017-07-07] MEDS: Morphine 2 MG/ML Syringe IVPUSH PRN (23:22)
[2017-07-08] MEDS: Sodium Chloride 0.9% 1,000 ML IV SCH (03:16)
[2017-07-08] MEDS: LORazepam 2 MG/ML SDV IVPUSH PRN (03:17)
[2017-07-08] MEDS: Gabapentin 100 MG Cap PO SCH (05:51)
[2017-07-08] MEDS: Levothyroxine 112 MCG Tab PO SCH (07:11)
[2017-07-08] MEDS: busPIRone 5 MG Tab PO SCH (08:27)
[2017-07-08] MEDS: Doxycycline 100 MG Cap PO SCH (08:27)
[2017-07-08] MEDS: Magnesium Hydroxide 400 MG/5 ML Susp 30 ML Cup PO SCH (08:27)
[2017-07-08] MEDS: Hydrochlorothiazide 25 MG Tab PO SCH (08:27)
[2017-07-08] MEDS: Irbesartan 150 MG Tab PO SCH (08:28)
[2017-07-08] MEDS: Escitalopram 10 MG Tab PO SCH (08:29)
[2017-07-08] MEDS: Metoprolol Tartrate 25 MG Tab PO SCH (08:29)
[2017-07-08] MEDS: LORazepam 1 MG Tab PO SCH (08:31)
[2017-07-08] MEDS: Acetaminophen 325 MG Tab PO PRN (08:31)
[2017-07-08] MEDS: OLANZapine 5 MG Tab PO SCH (08:31)
[2017-07-08] MEDS: Aspirin 81 MG Tab.Chew PO SCH (08:36)
[2017-07-08] MEDS: Heparin Sodium 5,000 Units/ML Vial SUBCUT SCH (08:44)
[2017-07-08] MEDS: VITAMIN B COMPLEX PO SCH (08:57)
--- NOTE | 2017-07-08 11:24 | PCM.DCSUM1 ---
Discharge Summary - Hospital Course Free Text/Narrative:: Admission date: 07/05/2017 Discharge date: 07/08/2017 Admission diagnosis: #1. Closed fractures of pubic symphsis, pubic ramus #2. leukocytosis #3. lactic acidosis Discharge diagnosis: #1. closed fractures of pubic symphsis, pubic ramus #2. leukocytosis - improved #3. lactic acidosis - resolved Hospital course: this is a 87 year old female who presented to the ER after an unwitnessed fall. ER workup indicated closed, nondisplaced ractures of the pubic symphsis and ramus. Surgical intervention was not indicated. The patient was admitted for observation and pain control. During her stay here, the patient had episodes of anxiety and agitation secondary likely to pain which responded well to IV Ativan. Pain was decently controlled with tramadol, morphine. She did get really drowsy secondary to the morphine so that was discontinued. She was evaluated by PT who was able to work with her minimally given her fracture. In regards to her lactic acid, that came down after receiving IV fluids on recheck the morning after admission. This was likely secondary to dehydration. Her white count came down to 13,000s from 20,000 at the time of discharge. CXR, UA, UC were all unremarkable so a source wasn't found. The patient did not have any difficulty breathing and her lungs were clear. Regardless, this may have been a pulmonary etiology so doxycycline was prescribed for possible pneumonia that may have not come up on CXR. Return precautions as discussed. Disposition: [facility] Medications: #1. Doxycycline 100mg PO q12hrs x6 days #2. Ativan 1mg po q4hrs PRN anxiety x7 days #3. Ativan 1mg PO BID scheduled x 7 days #4. Oxycodone 5 mg PO q6hrs PRN pain x 7 days #5. Tramadol 50mg PO q6hrs PRN pain x 7 days - Discharge Data Discharge Date: 07/08/17 Discharge Disposition: DC/Tfer to [facility] 03 Condition: Fair - Patient Summary/Data Consults: Consultations 07/05/17 12:17 PT Evaluation and Treatment [CONS] Routine - Patient Instructions Diet: Usual Diet as Tolerated Activity: As Tolerated Notify Provider of: Fever, Increased Pain, Swelling and Redness, Drainage Other/Special Instructions: PT/OT/speech to evaluate and/or treat. - Discharge Plan Prescriptions/Med Rec: Doxycycline Calcium [IMW: Doxycycline] 100 mg PO Q12HR 6 Days #12 capsule oxyCODONE 5 mg PO Q6H PRN 7 Days #28 ml PRN Reason: Pain traMADol [Ultram] 50 mg PO Q6H PRN 7 Days #28 tablet PRN Reason: Pain Home Medications: Home Meds Acetaminophen [Acetaminophen ER] 650 mg PO Q4H PRN 07/05/17 [History] Aspirin 81 mg PO MOWEFR 07/05/17 [History] B1/B2/Niacin/B12/Protease [B-Complex with B-12 Tablet] 1 tab PO DAILY 07/05/17 [ History] Benzonatate 100 mg PO Q8HR PRN 07/05/17 [History] Bisacodyl 10 mg RECTAL DAILY PRN 07/05/17 [History] Escitalopram Oxalate [Lexapro] 15 mg PO DAILY 07/05/17 [History] Gabapentin [Neurontin] 100 mg PO TID 07/05/17 [History] Hydrochlorothiazide 25 mg PO DAILY 07/05/17 [History] Irbesartan 300 mg PO DAILY 07/05/17 [History] LORazepam 1 mg PO BID 07/05/17 [History] LORazepam 1 mg PO BID PRN 07/05/17 [History] Latanoprost 1 drop EYERT BEDTIME 07/05/17 [History] Levothyroxine Sodium [Levo-T] 112 mcg PO ACBREAKFAST 07/05/17 [History] Magnesium Hydroxide [Milk of Magnesia] 30 ml PO DAILY PRN 07/05/17 [History] Metoprolol Tartrate 25 mg PO BID 07/05/17 [History] OLANZapine [Olanzapine] 5 mg PO BID 07/05/17 [History] Simvastatin [Zocor] 20 mg PO BEDTIME 07/05/17 [History] busPIRone HCl [Buspirone HCl] 7.5 mg PO BID 07/05/17 [History] metFORMIN HCl [Metformin HCl ER] 500 mg PO BEDTIME 07/05/17 [History] oxyCODONE 5 mg PO Q6H PRN 7 Days #28 ml 07/07/17 [Rx] traMADol [Ultram] 50 mg PO Q6H PRN 7 Days #28 tablet 07/07/17 [Rx] Doxycycline Calcium [IMW: Doxycycline] 100 mg PO Q12HR 6 Days #12 capsule [Rx] Patient Handouts: Oxycodone tablets or capsules, Tramadol tablets, Doxycycline tablets or capsules, Dehydration, Elderly, Simple Pelvic Fracture, Adult Referrals: Leeroy Moran MD [Physician] - - Discharge Summary/Plan Comment DC Time >30 min.: No Discharge Summary/Plan Comment: Admission date: 07/05/2017 Discharge date: 07/08/2017 Admission diagnosis: #1. Closed fractures of pubic symphsis, pubic ramus #2. leukocytosis #3. lactic acidosis Discharge diagnosis: #1. closed fractures of pubic symphsis, pubic ramus #2. leukocytosis - improved #3. lactic acidosis - resolved Hospital course: this is a 87 year old female who presented to the ER after an unwitnessed fall. ER workup indicated closed, nondisplaced ractures of the pubic symphsis and ramus. Surgical intervention was not indicated. The patient was admitted for observation and pain control. During her stay here, the patient had episodes of anxiety and agitation secondary likely to pain which responded well to IV Ativan. Pain was decently controlled with tramadol, morphine. She did get really drowsy secondary to the morphine so that was discontinued. She was evaluated by PT who was able to work with her minimally given her fracture. In regards to her lactic acid, that came down after receiving IV fluids on recheck the morning after admission. This was likely secondary to dehydration. Her white count came down to 13,000s from 20,000 at the time of discharge. CXR, UA, UC were all unremarkable so a source wasn't found. The patient did not have any difficulty breathing and her lungs were clear. Regardless, this may have been a pulmonary etiology so doxycycline was prescribed for possible pneumonia that may have not come up on CXR. Return precautions as discussed. Disposition: [facility] Medications: #1. Doxycycline 100mg PO q12hrs x6 days #2. Ativan 1mg po q4hrs PRN anxiety x7 days #3. Ativan 1mg PO BID scheduled x 7 days #4. Oxycodone 5 mg PO q6hrs PRN pain x 7 days #5. Tramadol 50mg PO q6hrs PRN pain x 7 days - Patient Data Vitals - Most Recent: Last Vital Signs Temp 37.1 C 07/08/17 08:00 Pulse 60 07/08/17 08:29 Resp 18 07/08/17 08:00 BP 124/43 L 07/08/17 08:29 Pulse Ox 92 L 07/08/17 08:00 Weight - Most Recent: 65 kg I&O - Last 24 hours: Intake & Output 07/07/17 07/08/17 07/08/17 22:59 06:59 14:59 Intake Total 280 1050 Balance 280 1050 Lab Results - Last 24 hrs: Laboratory Results - last 24 hr 07/07/17 07/07/17 07/07/17 Range/Units 11:24 17:38 20:57 WBC (4.0-11.0) K/uL RBC (4.30-5.90) M/uL Hgb (12.0-16.0) g/dL Hct (36.0-46.0) % MCV (80.0-98.0) fL MCH (27.0-32.0) pg MCHC (31.0-37.0) g/dL RDW Std Deviation (28.0-62.0) fl RDW Coeff of Gideon (11.0-15.0) % Plt Count (150-400) K/uL MPV (7.40-12.00) fL Add Manual Diff Neutrophils % (Manual) (48.0-80.0) % Band Neutrophils % % Lymphocytes % (Manual) (16.0-40.0) % Monocytes % (Manual) (0.0-15.0) % Eosinophils % (Manual) (0.0-7.0) % Basophils % (Manual) (0.0-1.5) % Nucleated RBC % /100WBC Absolute Seg Neuts (1.4-5.7) Band Neutrophils # Lymphocytes # (Manual) (0.6-2.4) Monocytes # (Manual) (0.0-0.8) Eosinophils # (Manual) (0.0-0.7) Basophils # (Manual) (0.0-0.1) Nucleated RBCs # K/uL Sodium (136-146) mmol/L Potassium (3.5-5.1) mmol/L Chloride (98-110) mmol/L Carbon Dioxide (21-31) mmol/L BUN (6.0-23.0) mg/dL Creatinine (0.6-1.5) mg/dL Est Cr Clr Drug Dosing mL/min Estimated GFR (MDRD) ml/min Glucose (60-110) mg/dL POC Glucose 130 H 144 H 140 H (60-110) mg/dL Calcium (8.8-10.8) mg/dL 07/08/17 07/08/17 07/08/17 Range/Units 05:45 05:45 07:12 WBC 13.21 H (4.0-11.0) K/uL RBC 3.24 L (4.30-5.90) M/uL Hgb 10.9 L (12.0-16.0) g/dL Hct 32.6 L (36.0-46.0) % MCV 100.6 H (80.0-98.0) fL MCH 33.6 H (27.0-32.0) pg MCHC 33.4 (31.0-37.0) g/dL RDW Std Deviation 50.0 (28.0-62.0) fl RDW Coeff of Gideon 14 (11.0-15.0) % Plt Count 161 (150-400) K/uL MPV 12.10 H (7.40-12.00) fL Add Manual Diff YES Neutrophils % (Manual) 69 (48.0-80.0) % Band Neutrophils % 4 % Lymphocytes % (Manual) 21 (16.0-40.0) % Monocytes % (Manual) 4 (0.0-15.0) % Eosinophils % (Manual) 1 (0.0-7.0) % Basophils % (Manual) 1 (0.0-1.5) % Nucleated RBC % 0.0 /100WBC Absolute Seg Neuts 9.1 H (1.4-5.7) Band Neutrophils # 0.5 Lymphocytes # (Manual) 2.8 H (0.6-2.4) Monocytes # (Manual) 0.5 (0.0-0.8) Eosinophils # (Manual) 0.1 (0.0-0.7) Basophils # (Manual) 0.1 (0.0-0.1) Nucleated RBCs # 0 K/uL Sodium 141 (136-146) mmol/L Potassium 3.8 (3.5-5.1) mmol/L Chloride 111 H (98-110) mmol/L Carbon Dioxide 20 L (21-31) mmol/L BUN 19 (6.0-23.0) mg/dL Creatinine 0.9 (0.6-1.5) mg/dL Est Cr Clr Drug Dosing 39.67 mL/min Estimated GFR (MDRD) 59.0 ml/min Glucose 120 H (60-110) mg/dL POC Glucose 131 H (60-110) mg/dL Calcium 7.7 L (8.8-10.8) mg/dL Med Orders - Current: Current Medications Acetaminophen (Tylenol) 650 mg PO Q4H PRN PRN Reason: Pain (Mild 1-3)/fever Last Admin: 07/08/17 08:31 Dose: 650 mg Albuterol (Proventil Neb Soln) 2.5 mg NEB Q2H PRN PRN Reason: Shortness Of Breath/wheezing Aspirin (Aspirin) 81 mg PO MOWEFR [facility] Last Admin: 07/08/17 08:36 Dose: 81 mg Benzonatate (Tessalon Perles) 100 mg PO Q8HR PRN PRN Reason: Cough Bisacodyl (Dulcolax) 10 mg RECTAL DAILY PRN PRN Reason: Constipation Buspirone HCl (Buspar) 7.5 mg PO BID [facility] Last Admin: 07/08/17 08:27 Dose: 7.5 mg Doxycycline Hyclate (Vibramycin) 100 mg PO Q12HR [facility] Last Admin: 07/08/17 08:27 Dose: 100 mg Escitalopram Oxalate (Lexapro) 15 mg PO DAILY [facility] Last Admin: 07/08/17 08:29 Dose: 15 mg Gabapentin (Neurontin) 100 mg PO TID [facility] Last Admin: 07/08/17 05:51 Dose: 100 mg Heparin Sodium (Porcine) (Heparin Sodium) 5,000 units SUBCUT Q12HR [facility] Last Admin: 07/08/17 08:44 Dose: 5,000 units Hydrochlorothiazide (Hydrochlorothiazide) 25 mg PO DAILY [facility] Last Admin: 07/08/17 08:27 Dose: 25 mg Sodium Chloride (Normal Saline) 1,000 mls @ 75 mls/hr IV ASDIRECTED [facility] Last Admin: 07/08/17 03:16 Dose: 75 mls/hr Irbesartan (Avapro) 300 mg PO DAILY [facility] Last Admin: 07/08/17 08:28 Dose: 300 mg Latanoprost (Xalatan 0.005% Oph Soln) 1 ml EYERT BEDTIME [facility] Last Admin: 07/07/17 21:33 Dose: 1 drop Levothyroxine Sodium (Levothyroxine) 112 mcg PO ACBREAKFAST [facility] Last Admin: 07/08/17 07:11 Dose: 112 mcg Lorazepam (Ativan) 1 mg PO BID [facility] Last Admin: 07/08/17 08:31 Dose: 1 mg Lorazepam (Ativan) 1 mg IVPUSH Q4H PRN PRN Reason: Agitation Last Admin: 07/08/17 03:17 Dose: 1 mg Magnesium Hydroxide (Milk Of Magnesia) 30 ml PO DAILY [facility] Last Admin: 07/08/17 08:27 Dose: 30 ml Metformin HCl (Glucophage Xr) 500 mg PO BEDTIME [facility] Last Admin: 07/07/17 21:32 Dose: 500 mg Metoprolol Tartrate (Lopressor) 25 mg PO BID [facility] Last Admin: 07/08/17 08:29 Dose: 25 mg Morphine Sulfate (Morphine) 1 mg IVPUSH Q4H PRN PRN Reason: Pain Last Admin: 07/07/17 23:22 Dose: 1 mg Olanzapine (Zyprexa) 5 mg PO BID [facility] Last Admin: 07/08/17 08:31 Dose: 5 mg Ondansetron HCl (Zofran) 4 mg IVPUSH Q4H PRN PRN Reason: Nausea Vitamin B Complex 1 each PO DAILY [facility] Last Admin: 07/08/17 08:57 Dose: Not Given Simvastatin (Zocor) 20 mg PO BEDTIME [facility] Last Admin: 07/07/17 21:31 Dose: 20 mg Sodium Chloride (Saline Flush) 10 ml FLUSH ASDIRECTED PRN PRN Reason: Keep Vein Open Last Admin: 07/05/17 07:47 Dose: 10 ml Sodium Chloride (Saline Flush) 2.5 ml FLUSH ASDIRECTED PRN PRN Reason: Keep Vein Open Last Admin: 07/05/17 07:49 Dose: 2.5 ml Tramadol HCl (Ultram) 50 mg PO Q12H PRN PRN Reason: Pain Last Admin: 07/07/17 10:33 Dose: 50 mg Discontinued Medications Acetaminophen (Tylenol Extra Strength) 500 mg PO ONETIME ONE Stop: 07/05/17 07:30 Last Admin: 07/05/17 07:46 Dose: 500 mg Aspirin (Aspirin) 81 mg PO DAILY [facility] Bacitracin (Bacitracin Oint 1 Gm) 1 dose TOP ONETIME ONE Stop: 07/05/17 07:22 Last Admin: 07/05/17 07:47 Dose: 1 dose Bisacodyl (Dulcolax) 10 mg RECTAL DAILY PRN PRN Reason: Constipation Bisacodyl (Dulcolax) 10 mg RECTAL DAILY [facility] Last Admin: 07/06/17 08:00 Dose: 10 mg Sodium Chloride (Normal Saline) 1,000 mls @ 75 mls/hr IV ASDIRECTED [facility] Last Infusion: 07/05/17 20:17 Dose: 75 mls/hr Piperacillin Sod/Tazobactam (Sod 3.375 gm/ Sodium Chloride) 50 mls @ 100 mls/ hr IV ONETIME ONE Stop: 07/05/17 11:08 Last Admin: 07/05/17 10:56 Dose: 100 mls/hr Lorazepam (Ativan) 1 mg PO BEDTIME [facility] Lorazepam (Ativan) 1 mg PO ONETIME ONE Stop: 07/05/17 15:19 Last Admin: 07/05/17 15:30 Dose: 1 mg Magnesium Hydroxide (Milk Of Magnesia) 30 ml PO DAILY [facility] Magnesium Hydroxide (Milk Of Magnesia) 30 ml PO DAILY PRN PRN Reason: Constipation Metformin HCl (Glucophage) 500 mg PO DAILY@0800 [facility] Morphine Sulfate (Morphine) 1 mg IVPUSH Q4H PRN PRN Reason: Pain (severe 7-10) Stop: 07/06/17 12:19 Last Admin: 07/06/17 03:44 Dose: 1 mg Morphine Sulfate (Morphine) 1 mg IVPUSH Q4H PRN PRN Reason: Pain (severe 7-10) Stop: 07/06/17 12:19 Last Admin: 07/06/17 09:36 Dose: 1 mg *Q Meaningful Use (DIS) - VTE *Q VTE Criteria *Q: - Stroke *Q Stroke Criteria *Q: - AMI *Q AMI Criteria *Q:
== END 2017-07-08 12:52 | DRG 536 ==
LOC: MW.ED 06:42 → MW.MS 10:39
PROVIDERS: ADMIT Family Medicine; ATTEND Family Medicine
DX: S32.512A Fracture of superior rim of left pubis, initial encounter for closed fracture (principal); S32.592A Other specified fracture of left pubis, initial encounter for closed fracture; E87.2 Acidosis; W18.30XA Fall on same level, unspecified, initial encounter; Z91.81 History of falling; Y92.129 Unspecified place in nursing home as the place of occurrence of the external cause; D72.829 Elevated white blood cell count, unspecified; E86.0 Dehydration; F41.8 Other specified anxiety disorders; I10 Essential (primary) hypertension; R45.1 Restlessness and agitation; E03.9 Hypothyroidism, unspecified; E11.9 Type 2 diabetes mellitus without complications; F03.90 Unspecified dementia, unspecified severity, without behavioral disturbance, psychotic disturbance, mood disturbance, and anxiety; E20.9 Hypoparathyroidism, unspecified; Z79.899 Other long term (current) drug therapy
CPT/HCPCS: 36415; 70450; 71101; 72100; 73070; 73502; 80053; 83605; 84484; 85025; 87040 ×2; 96361; 99285; A9270; J7040; 80048; 81001; 82962; 87086; 93005; 96360; 96365; 97162-GP; 97530-GP; 99284; J1644; J2060; J2270; J2543; J7050